=== PATIENT | female | born 1990 | race Caucasian/White ===

== ENCOUNTER → 2017-08-09 14:53 | Outpatient (CLI) | payer MEDICAID, SELFPAY ==
[2017-08-13 14:16] LABS: HPV Reflexed? NOT INDICATED
== END ==
PROVIDERS: Family Provider Internal Medicine; PCP Internal Medicine; Visit Provider Obstetrics & Gynecology
DX: Z12.4 Encounter for screening for malignant neoplasm of cervix (principal)
CPT/HCPCS: 88175; G0145

== ENCOUNTER 2017-08-28 22:15 | Emergency (ER) | payer MEDICAID, SELFPAY ==
[2017-08-28 22:17] VITALS: BP 128/49; PULSE 116; RESP 22; TEMP 36.2; O2SAT 95; BMI 23.6
--- NOTE | 2017-08-28 22:36 | CT_ITS ---
STUDY: CT ABDOMEN AND PELVIS WITHOUT CONTRAST REASON FOR EXAM: Female, 26 years old. Back pain RADIATION DOSAGE (If Supplied By Facility): CTDIvol = ( 6.05 ) mGy, DLP = ( 275.00 ) mGycm TECHNIQUE: Transaxial images were obtained from the dome of the diaphragm to the symphysis pubis without oral contrast, and without intravenous contrast. Sagittal and coronal images were reconstructed. Individualized dose optimization techniques were used for this CT. COMPARISON: None. FINDINGS: The visualized lung bases are unremarkable. The visualized portions of the heart are within normal limits. Normal liver. Normal gallbladder and extrahepatic biliary system. Normal spleen. Normal pancreas. Normal bilateral adrenal glands. Normal right kidney. Normal left kidney. There are NO kidney stones. There is NO hydronephrosis. Normal visualized stomach. Normal small intestine. Normal colon. The appendix is visualized and appears normal. Normal abdominal aorta. Normal inferior vena cava. Normal retroperitoneum. Normal urinary bladder. Uterus and ovaries are unremarkable. There is NO ascites, free air, abscess or adenopathy. Normal abdominal wall. Normal osseous structures. CT/Abdomen/Pelvis without Cont IMPRESSION: There are NO kidney stones. There is NO hydronephrosis. Normal visualized stomach. Normal small intestine. Normal colon. The appendix is visualized and appears normal. Uterus and ovaries are unremarkable. There is NO ascites, free air, abscess or adenopathy. Electronically Signed: Quinn Bowens MD at 0:54 EDT , Service support ,
[2017-08-28] MEDS: proMETHazine 25 MG/ML Syringe 12.5 MG IV (22:43)
[2017-08-28] MEDS: 0.9% Normal Saline 1,000 ML 1000 ML IV (22:43)
[2017-08-28] MEDS: LORazepam 2 MG/ML Syringe 1 MG IV (22:44)
[2017-08-28] MEDS: Ketorolac 30 MG/ML Syringe IV (22:44)
[2017-08-28 22:53] LABS: Absolute Lymphocyte Count 0.43 X10^3/ul (0.83-4.51); Absolute Neutrophil Count 11.4 X10^3/uL (2.0-7.7); Basophil# 0.01 X10^3/uL; Basophil% 0.1 % (0-1); Differential Indicated SCAN CRITERIA MET; Eosinophil# 0.07 X10^3/uL; Eosinophils% 0.5 % (0-5); Hematocrit 45.9 % (37-47); Hemoglobin 15.4 g/dl (12.0-15.0); Lymphocyte # 0.43 X10^3/ul (4.0); Lymphocyte % 3.4 % (19-41); Mean Corp Hgb Conc 33.6 g/gl (32-36); Mean Corpuscular Hgb 30.9 pg (27.0-32.0); Mean Corpuscular Volume 92.2 fL (81-99); Mean Platelet Vol. 10.4 fl (6.2-12.0); Monocyte# 0.87 X10^3/uL; Monocyte% 6.8 % (0-10); Neutrophil # 11.35 X10^3/uL (2.7-7.7); POSITIVE COUNT NO; POSITIVE DIFFERENTIAL YES; POSITIVE MORPHOLOGY NO; Platelet Count 196 K/mm3 (150-450); RBC Distribution Width CV 12.4 % (11.6-14.6); RBC Distribution Width SD 41.4 fl (35.1-43.9); Red Blood Count 4.98 M/mm3 (4.2-5.4); White Blood Count 12.8 K/mm3 (4.4-11.0)
[2017-08-28 23:02] LABS: Anion Gap 10 (5-15); BUN 15 mg/dL (7-18); BUN/Creat Ratio 24.2 RATIO (10-20); Calcium,Total 9.8 mg/dL (8.5-10.1); Chloride 106 mmol/L (98-107); Creatinine, Serum 0.62 mg/dL (0.55-1.02); EST Glomerular Filtration Rate 123 mL/min (>60); Est Glom Filt Rate - Afr Amer 149 mL/min (>60); Estimated Creatinine Clearance 103.76 ml/min; Glucose 133 mg/dL (74-106); Potassium 3.5 mmol/L (3.5-5.1); Sodium Level 142 mmol/L (136-145)
[2017-08-28 23:41] LABS: Bacteria 0 SEEN /hpf (None Seen); Red Blood Cells-Urine 0 SEEN /hpf (0-5)
[2017-08-28 23:44] LABS: Color, Urine Yellow (Yellow); Glucose, Dipstick Normal (Normal); Ketone-Dipstick 15 mg/dl (Negative); Leukocyte Esterase-Dipstick 100 /ul (Negative); Nitrite-Dipstick Negative (Negative); Occult Blood-Urine Negative /ul (Negative); Protein-Dipstick Negative (Negative); Specific Gravity, Urine 1.025 (1.002-1.030); Urine Clarity Clear (Clear); Urine Urobilinogen Normal (Normal)
[2017-08-28 23:45] LABS: Internal QC Validated? YES +Cl - CLEAR BKGD; Pregnancy, Urine Negative Negative
[2017-08-28 23:46] LABS: Urine Bilirubin Dipstick 3 mg/dL (Negative)
[2017-08-28 23:54] LABS: Mucous, Urine 2+ /hpf (<or=2+); Squamous Epithelial Cells - UA 5-10 SEEN /hpf (5-10); White Blood Cells 0-5 SEEN /hpf (0-5)
[2017-08-28 23:55] LABS: Calcium Oxalate Crystals Ur 3+ /hpf (<or=2+)
--- NOTE | 2017-08-29 | ED.DCSUM_ITS ---
- ER Visit Summary Date of Service: 08/28/17 Chief Complaint: Vomiting and lip and hand tingling History of Present Illness: The patient is a 26 F who states that around 8:00 this evening she had a sudden onset of back pain as well as nausea vomiting. She notes a slight amount of diarrhea. She states now she feels short of breath and she has tingling in her lips and hands. She has a history of anxiety depression. No known history of kidney stones. She denies any urinary symptoms. No fevers. No rashes. Physical Examination: Afebrile vital signs show slight tachycardia 116. Gen: Well-nourished well-developed she appears very uncomfortable constantly moving and fidgeting in the bed. Head: Normocephalic atraumatic Eyes: Perrl EOMI ENT: TMs clear no rhinorrhea moist mucous membranes Neck: Supple no lymphadenopathy no JVD nontender CVS: Regular rate rhythm no murmurs normal S1-S2 Respiratory: No distress clear to auscultation bilaterally chest nontender Abdomen: Soft nontender nondistended normal bowel sounds no masses Back: Patient complains of tenderness palpation diffusely across the low back Extremity: Nontender no edema Skin: Normal color no rash Neuro: alert orientated ?3 CN II-XII intact normal strength sensation reflexes gait cerebellar Psych: Normal affect normal mood Test Results: White count 12.8. Glucose 133. Urinalysis demonstrated 3+ calcium oxalate crystals without any evidence of overt infection. test was negative. Emergency Department Course and Treatment: Patient received IV fluids, Toradol, Phenergan, and Ativan. Impression: [] This note was generated with [employer] dictation software. It may contain incorrect words, spelling, and punctuation that were not noted in review of the chart prior to signing ED Disposition - Plan for ED Patient: Chief Complaint: Nausea/Vomiting Referrals: Kwame Self MD [Primary Care Provider] -
[2017-08-29 00:18] VITALS: BP 94/46; PULSE 101; RESP 18; O2SAT 100
[2017-08-29 01:04] VITALS: BP 99/67; PULSE 98; RESP 18; O2SAT 98
[2017-08-29] MEDS: proMETHazine 25 MG Tablet PO (01:11)
== END 2017-08-29 01:11 | disposition home or self-care (01) ==
PROVIDERS: Emergency Provider Emergency Medicine; Family Provider Family Medicine; PCP Family Medicine
DX: K52.9 Noninfective gastroenteritis and colitis, unspecified (principal); R20.2 Paresthesia of skin; R06.00 Dyspnea, unspecified; F41.9 Anxiety disorder, unspecified; F32.9 Major depressive disorder, single episode, unspecified; Z79.899 Other long term (current) drug therapy
CPT/HCPCS: 74176; 80048; 81001; 81025; 85025; 96361; 96374; 96375; 99283; J7030; A4216

== ENCOUNTER → 2018-03-18 09:03 | Outpatient (CLI) | payer MEDICAID, SELFPAY ==
[2018-03-18 09:19] LABS: Absolute Lymphocyte Count 1.89 X10^3/ul (0.83-4.51); Absolute Neutrophil Count 3.2 X10^3/uL (2.0-7.7); Basophil# 0.01 X10^3/uL; Basophil% 0.2 % (0-1); Eosinophil# 0.08 X10^3/uL; Eosinophils% 1.5 % (0-5); Hematocrit 41.8 % (37-47); Hemoglobin 13.7 g/dl (12.0-15.0); Lymphocyte # 1.89 X10^3/ul (4.0); Lymphocyte % 34.4 % (19-41); Mean Corp Hgb Conc 32.8 g/gl (32-36); Mean Corpuscular Hgb 30.4 pg (27.0-32.0); Mean Corpuscular Volume 92.7 fL (81-99); Mean Platelet Vol. 10.3 fl (6.2-12.0); Monocyte# 0.34 X10^3/uL; Monocyte% 6.2 % (0-10); Neutrophil # 3.17 X10^3/uL (2.7-7.7); Neutrophil % 57.7 % (47-70); POSITIVE COUNT NO; POSITIVE DIFFERENTIAL NO; POSITIVE MORPHOLOGY NO; Platelet Count 225 K/mm3 (150-450); RBC Distribution Width CV 12.4 % (11.6-14.6); RBC Distribution Width SD 42.1 fl (35.1-43.9); Red Blood Count 4.51 M/mm3 (4.2-5.4); White Blood Count 5.5 K/mm3 (4.4-11.0)
== END ==
PROVIDERS: Family Provider Family Medicine; PCP Family Medicine; Visit Provider Obstetrics & Gynecology
DX: N93.9 Abnormal uterine and vaginal bleeding, unspecified (principal)
CPT/HCPCS: 36415; 84443; 85025

== ENCOUNTER 2019-03-26 15:46 | Emergency (ER) | payer BC, SELFPAY ==
[2018-10-17 09:27] VITALS: BMI 24.5
[2019-03-26 15:47] VITALS: BP 121/87; PULSE 100; PULSE 89; RESP 19; TEMP 37.1; O2SAT 100; BMI 24.5
--- NOTE | 2019-03-26 16:26 | ED.VISSUMM ---
- ER Visit Summary Date of Service: 03/26/19 Chief Complaint: Cough History of Present Illness: The patient is a 28 F no significant past medical history. Patient states she has had respiratory symptoms and a cough for 2 weeks with worsening cough for last 2 days. Nonproductive. No hemoptysis. No fever chills no wheezing. Mild dyspnea. No leg pain or swelling. Physical Examination: Vital signs are stable afebrile pulses are present on room air no signs of hypoxia. No distress. HEENT exam unremarkable. Neck nontender no lymphadenopathy. Lungs dry cough no rales rhonchi or wheezing. Slightly diminished in the right base. Heart regular rate and rhythm no murmur. Chest were nontender. Abdomen soft nontender. Patient moving all 4 extremities. Calves nontender no edema no cords. Back exam unremarkable. Neurologically awake alert no focal deficits. Test Results: Chest x-ray AP lateral views asymmetry in the right lower lobe compared to the left. I do think there is early infiltrate in the right lower lobe. Reviewed better on the AP film and the lateral. I also thought her diminished breath sounds in the right lower lobe so this will be treated as pneumonia. Nursing did an EKG due to burning chest discomfort when the patient coughs shows a sinus rhythm at a rate of 87 with no acute signs of AL or ischemia. Emergency Department Course and Treatment: Patient's history and exam are consistent with bronchitis or early pneumonia. Due to the chest x-ray she will be started on Zithromax Z-DURAN first dose given in the ER. Treatment Plan: Z-Duran. Plenty fluids and rest. Return if feeling worse. Follow-up if not improving. Tylenol Motrin for fever and chills. Disposition: Discharge Impression: Acute right lower lobe pneumonia This note was generated with [employer] dictation software. It may contain incorrect words, spelling, and punctuation that were not noted in review of the chart prior to signing ED Disposition - Plan for ED Patient: Referrals: Kwame Self MD [STAFF PHYSICIAN] -
--- NOTE | 2019-03-26 16:30 | RAD_ITS ---
STUDY: X-RAY CHEST REASON FOR EXAM: Female, 28 years old. Cough and chest pain. TECHNIQUE: Frontal and lateral views of the chest. COMPARISON: None. FINDINGS: Mild hyperexpansion. There is no demonstrated pleural abnormality. Normal size heart. Normal mediastinum and evelyn. Normal visualized pulmonary arteries. Normal visualized aortic arch and descending thoracic aorta. Normal visualized thoracic spine. Normal visualized ribs, clavicles, and shoulders. There is no demonstrated abnormality of the visualized soft tissue structures of the upper abdomen. RAD/Chest PA and Lateral IMPRESSION: Mild hyperexpansion with no acute finding. Electronically Signed: Jm Reed MD at 16:59 EDT , Service support ,
--- NOTE | 2019-03-26 16:51 | ED.DEP ---
ED Disposition - Plan for ED Patient: Disposition: Home or Assisted Living Instructions: PNEUMONIA (Adult) Prescriptions: Azithromycin [Zithromax] 250 mg PO DAILY #4 tab Prescription Printed Referrals: Kwame Self MD [STAFF PHYSICIAN] - 1 Week if not improving Additional Instructions: Plenty of fluids and rest. Alternate Tylenol Motrin for fever and body aches. Zithromax Z-DURAN 1 pill/day for the next 4 days starting tomorrow. Follow-up with not improving return if feeling a lot worse.
[2019-03-26] MEDS: Azithromycin 250 MG Tablet 500 MG PO (17:03)
[2019-03-26 17:04] VITALS: RESP 18
== END 2019-03-26 17:05 | disposition home or self-care (01) ==
PROVIDERS: Emergency Provider Emergency Medicine; Family Provider Family Medicine; PCP Family Medicine
DX: J18.9 Pneumonia, unspecified organism (principal)
CPT/HCPCS: 71046; 93005; 99283

== ENCOUNTER → 2019-12-07 16:31 | Outpatient (CLI) | payer BC, SELFPAY ==
[2019-12-07 15:23] VITALS: BMI 24.5
[2019-12-13 13:28] LABS: HPV Reflexed? NOT INDICATED
== END ==
PROVIDERS: Referring Provider Obstetrics & Gynecology; Visit Provider Obstetrics & Gynecology
DX: Z12.4 Encounter for screening for malignant neoplasm of cervix (principal)
CPT/HCPCS: 88175; G0145

== ENCOUNTER → 2020-07-31 12:54 | Outpatient (CLI) | payer BC, SELFPAY ==
[2020-07-31 10:37] VITALS: BMI 28.0
== END ==
PROVIDERS: Referring Provider Nurse Practitioner Women's Health; Visit Provider Nurse Practitioner Women's Health
DX: N72 Inflammatory disease of cervix uteri (principal)
CPT/HCPCS: 87070; 87205

== ENCOUNTER → 2023-03-12 | Outpatient (CLI) | payer BC, SELFPAY ==
[2023-03-12 12:59] LABS: Bacteria 0 SEEN /hpf (None Seen); Mucous, Urine 0 SEEN /hpf (<or=2+); Red Blood Cells-Urine 0 SEEN /hpf (0-5); White Blood Cells 0 SEEN /hpf (0-5)
[2023-03-12 13:12] LABS: Color, Urine Straw (Yellow); Glucose, Dipstick Normal (Normal); Ketone-Dipstick Negative (Negative); Leukocyte Esterase-Dipstick Negative /ul (Negative); Nitrite-Dipstick Negative (Negative); Occult Blood-Urine Negative /ul (Negative); Protein-Dipstick Negative (Negative); Specific Gravity, Urine 1.005 (1.002-1.030); Urine Bilirubin Dipstick Negative (Negative); Urine Clarity Clear (Clear); Urine Urobilinogen Normal (Normal); Urine pH 6.5 (5.0 - 8.0)
[2023-03-12 13:20] LABS: Squamous Epithelial Cells - UA 0-5 SEEN /hpf (5-10)
== END | disposition home or self-care (01) ==
LOC: LABSPEC 12:17
PROVIDERS: Visit Provider Physician Assistant Surgical
DX: R35.0 Frequency of micturition (principal)
CPT/HCPCS: 81001; 87086; 87088

== ENCOUNTER → 2023-08-03 | Outpatient (CLI) | payer BC, SELFPAY ==
[2023-08-05 04:07] LABS: Chlamydia By Nucleic Acid AMP Negative (Negative); Gonococcus By Nucleic Acid AMP Negative (Negative)
[2023-08-21 08:35] LABS: HPV Reflexed? NOT INDICATED
== END | disposition home or self-care (01) ==
LOC: LABSPEC 11:13
PROVIDERS: Referring Provider Advanced Practice Midwife; Visit Provider Advanced Practice Midwife
DX: N89.8 Other specified noninflammatory disorders of vagina (principal)
CPT/HCPCS: 87070; 87086; 87205; 87491; 87591; 88175; G0145

== ENCOUNTER → 2024-05-23 | Outpatient (CLI) | payer BC, SELFPAY ==
[2024-05-25 16:08] LABS: Chlamydia By Nucleic Acid AMP Negative (Negative); Gonococcus By Nucleic Acid AMP Negative (Negative)
== END | disposition home or self-care (01) ==
LOC: LABSPEC 12:12
PROVIDERS: Referring Provider Obstetrics & Gynecology; Visit Provider Obstetrics & Gynecology
DX: N94.6 Dysmenorrhea, unspecified (principal); N93.0 Postcoital and contact bleeding; R10.9 Unspecified abdominal pain
CPT/HCPCS: 87070; 87205; 87491; 87591

== ENCOUNTER → 2024-05-30 | Outpatient (CLI) | payer BC, SELFPAY ==
--- NOTE | 2024-05-30 12:41 | US_ITS ---
STUDY: ULTRASOUND OF THE FEMALE PELVIS - COMPLETE REASON FOR EXAM: Female, 33 years old. Abdominal and pelvic pain. LMP: April 06, 2024. TECHNIQUE: Transabdominal and Transvaginal TECHNICAL QUALITY: Adequate. COMPARISON: Comparison is made with prior CT scan done August 28, 2017. FINDINGS: The uterus is retroverted and is in a midline position. The uterus measures 8.4 cm x 6.2 cm x 5.1 cm. Normal uterine cervix. The endometrium measures 12 mm in thickness, and is hyperechoic. There is no demonstrated endometrial mass. There is a 1.4 cm x 1.4 cm x 1 cm fibroid in the right side of the uterine fundus. I.U.D. - The patient does not have an I.U.D. The right ovary is visualized. The right ovary measures 5.5 cm x 3.7 cm x 3.5 cm. There is a 3.3 cm x 2 cm x 1.9 cm simple cyst in the right ovary. There is no visualized right adnexal mass or complex lesion. There is normal arterial and normal venous vascularity. The left ovary is visualized. The left ovary measures 2.2 cm x 2.2 cm x 1.7 cm. There is no left ovarian cyst or ovarian mass. There is no visualized left adnexal mass or complex lesion. There is normal arterial and normal venous vascularity. There is no fluid in the cul-de-sac. The pre void volume of the bladder was 757 ml. US/Pelvic w/ Transvaginal IMPRESSION: Small uterine fibroid. Right ovarian simple cyst. Electronically Signed: Rajesh Lizarraga MD at 12:24 EST ,
== END | disposition home or self-care (01) ==
LOC: US 12:40
PROVIDERS: PCP Internal Medicine; Referring Provider Obstetrics & Gynecology; Visit Provider Obstetrics & Gynecology
DX: N94.6 Dysmenorrhea, unspecified (principal); N93.0 Postcoital and contact bleeding; R10.9 Unspecified abdominal pain
CPT/HCPCS: 76830; 76856

== ENCOUNTER 2024-08-31 09:34 | Day surgery (SDC) | payer BC, SELFPAY ==
--- NOTE | 2024-08-29 09:27 | PAT.ANE_ITS ---
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 When Was Last Pacemaker Check QUESTION #4 FULL TEXT: You/Your Family Experience fever (hyperthermia) with Anesthesia Last Oral Intake Last Oral intake: Last Oral Intake NPO since Meds taken in AM with sips of water? 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 Female Yes 08/28/24 15:22 HX of Motion Sickness Yes 08/28/24 15:22 HX of N/V After Surgery No 08/28/24 15:22 Non-Smoker Yes 08/28/24 15:22 Duration of Surgery greater No 08/28/24 15:22 than 60 minutes Number of Risk Factors 3 08/28/24 15:22 PONV Score Moderate Risk 08/28/24 15:22 Height & Weight Height & Weight: Anesthesia: Height & Weight Height 5 ft 4 in 08/07/24 09:14 Respiratory Assessment Respiratory Assessment - computer engineering professor: Respiratory Tract Infection Hx - computer engineering professor Hx Respiratory Tract Infection No 08/28/24 15:22 STOP Sleep Apnea STOP Sleep Apnea - computer engineering professor: STOP Sleep Apnea - computer engineering professor Hx Hypertension No 08/28/24 15:22 Hx Sleep Apnea No 08/28/24 15:22 CPAP BIPAP Do you snore loudly (louder No 08/28/24 15:22 than talking or can be heard Do you often feel tired/ No 08/28/24 15:22 fatigued/ sleepy during daytime? Has anyone observed you stop No 08/28/24 15:22 breathing during sleep? STOP Results Negative 08/28/24 15:22 QUESTION #5 FULL TEXT : Do you snore loudly (louder than talking or can be heard through closed doors)? 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 Specify any problems Hx of Preganancy in last 3 N/A 08/28/24 15:22 Months Nurse Filling Out Transfusion NBUCHER 08/28/24 15:22 & Questions: Date: 08/28/24 08/28/24 15:22 Time: 15:24 08/28/24 15:22 Patient unable to answer at this time (ie. confused, unrespo /Reproduction History /Reproductive History - computer engineering professor: /Reproductive Hx- computer engineering professor Hx Now No 08/28/24 15:22 Gestational Age (in weeks): EDC: Hx Hx Para Hx Section SAB No 08/28/24 15:22 COUNT INCLUDES THE [facility] Medical History (Updated 08/28/24 @ 15:28 by Orin Gordon) Wears glasses Depression Anxiety Migraine headache Former smoker Asthma SOB (shortness of breath) Dermatitis, seborrheic Post depression Home Medications ?Medication ?Instructions ?Recorded ?Last Taken ?Type doxycycline hyclate 20 mg tablet 20 mg PO DAILY Unknown History calcium 300 mg-D3 25 mcg-magnesium 1 tab PO DAILY 06/01 12/22 Unknown History 66 mg-K2 37.5 mcg-herbal tablet (Alive Calcium-Vitamin D3-K2) magnesium 250 mg tablet 250 mg PO QDAY 06/26/24 Unkn own History omega-3 fatty acids-fish oil 300 1 cap PO DAILY Unknown History mg-500 mg capsule (Fish Oil) dextroamphetamine-amphetamine 10 10 mg PO DAILY Unknown History mg tablet (Adderall) Allergy/AdvReac Type Severity Reaction Status Date / Time ondansetron HCl (From Zofran Allergy Headache Verified 08/28/24 15:20 (as hydrochloride)) Family History Father Hypertension Hyperlipemia Environmental asthma Mother Hypertension Grandmother Diabetes Heart disease Surgical History (Updated 08/28/24 @ 15:28 by Orin Gordon) History of wisdom tooth extraction History of hand surgery History of open reduction and internal fixation (ORIF) procedure (~2010) Humerus fracture (~2009) Social History household members: family housing: house number of children: 2 current occupational status: employed 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 Normal sinus rhythm with sinus arrhythmia. Nonspecific T wave abnormality. Recommendation Anesthesia Recommendation Anesthesia recommendation: OPTIMIZED for anesthesia
[2024-08-31 09:57] LABS: Internal QC Validated? YES +Cl - CLEAR BKGD; Pregnancy, Urine Negative Negative
[2024-08-31 10:03] VITALS: BP 118/84; PULSE 63; RESP 16; TEMP 36.7; O2SAT 100; BMI 21.5
--- NOTE | 2024-08-31 10:31 | PCM.PRE.AN2 ---
ASA Classification* ASA Classification ASA Classification: 2 Assessment & Plan Anesthesia* Anesthesia Assessment Anesthesia Assessment: Discussed sedation and/or anesthesia options, risks, benefits, and alternatives with patient/parents/legal guardian/POA. Questions invited. The patient/parents/legal guardian/POA seems to understand and agrees to proceed with anesthesia plan. Reviewed the physical assessment, medical history, allergy history and patient home medications list prior to surgery/procedure/anesthetic and documented any changes. Performed airway and anesthesia risk assessments. Anesthesia Type Anesthesia Type: MAC History Source History Obtained from:: Patient and Chart Anesthesia Focused Assessment* Temperature: 98.0 F Pulse Rate: 63 Blood Pressure: 118/84 Respiratory Rate: 16 Pulse Ox: 100 Oxygen Delivery Method: Room Air Airway Assessment Mouth opens: >3 cm Mallampati Score: II Teeth Condition: Intact Neck Range of motion (ROM): Full ROM Focused Labs Anesthesia Preop lab: CBC WBC 5.5 K/mm3 (4.4-11.0) 03/18/18 09:06 03/18/18 RBC 4.51 M/mm3 (4.2-5.4) 03/18/18 09:06 03/18/18 Hgb 13.7 g/dl (12.0-15.0) 03/18/18 09:06 03/18/18 Hct 41.8 % (37-47) 03/18/18 09:06 03/18/18 Plt Count 225 K/mm3 (150-450) 03/18/18 09:06 03/18/18 CHEMISTRY Potassium 3.5 mmol/L (3.5-5.1) 08/28/17 22:43 08/28/17 Sodium 142 mmol/L (136-145) 08/28/17 22:43 08/28/17 BUN 15 mg/dL (7-18) 08/28/17 22:43 08/28/17 Creatinine 0.62 mg/dL (0.55-1.02) 08/28/17 22:43 08/28/17 Glucose 133 mg/dL (74-106) H 08/28/17 22:43 08/28/17 TSH 1.90 uIU/mL (0.358-3.74) 03/18/18 09:06 03/18/18 COAG Urine Test Negative Negative 08/31/24 09:45 08/31/24 Pre-Assessment Diagnosis/Proposed Procedure Planned Operative Procedure(s): COLONOSCOPY Anesthesia History 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 When Was Last Pacemaker Check QUESTION #4 FULL TEXT: You/Your Family Experience fever (hyperthermia) with Anesthesia Last Oral Intake Last Oral intake: Last Oral Intake NPO since 06:30 08/31/24 10:03 Meds taken in AM with sips of No 08/31/24 10:03 water? 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 Female Yes 08/28/24 15:22 HX of Motion Sickness Yes 08/28/24 15:22 HX of N/V After Surgery No 08/28/24 15:22 Non-Smoker Yes 08/28/24 15:22 Duration of Surgery greater No 08/28/24 15:22 than 60 minutes Number of Risk Factors 3 08/28/24 15:22 PONV Score Moderate Risk 08/28/24 15:22 Height & Weight Height & Weight: Anesthesia: Height & Weight Height 5 ft 4 in 08/31/24 10:03 Weight: 57 kg 08/31/24 10:03 Body Mass Index (BMI) 21.5 08/31/24 10:03 Respiratory Assessment Respiratory Assessment - jump iron machine presser: Respiratory Tract Infection Hx - jump iron machine presser Hx Respiratory Tract Infection No 08/28/24 15:22 STOP Sleep Apnea STOP Sleep Apnea - jump iron machine presser: STOP Sleep Apnea - jump iron machine presser Hx Hypertension No 08/28/24 15:22 Hx Sleep Apnea No 08/28/24 15:22 CPAP BIPAP Do you snore loudly (louder No 08/28/24 15:22 than talking or can be heard Do you often feel tired/ No 08/28/24 15:22 fatigued/ sleepy during daytime? Has anyone observed you stop No 08/28/24 15:22 breathing during sleep? STOP Results Negative 08/28/24 15:22 QUESTION #5 FULL TEXT : Do you snore loudly (louder than talking or can be heard through closed doors)? 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 Specify any problems Hx of Preganancy in last 3 N/A 08/28/24 15:22 Months Nurse Filling Out Transfusion NBUCHER 08/28/24 15:22 & Questions: Date: 08/28/24 08/28/24 15:22 Time: 15:24 08/28/24 15:22 Patient unable to answer at this time (ie. confused, unrespo /Reproduction History /Reproductive History - jump iron machine presser: /Reproductive Hx- jump iron machine presser Hx Now No 08/28/24 15:22 Gestational Age (in weeks): EDC: Hx Hx Para Hx Section SAB No 08/28/24 15:22 PFSH Medical History Wears glasses Depression Anxiety Migraine headache Former smoker Asthma SOB (shortness of breath) Dermatitis, seborrheic Post depression Home Medications ?Medication ?Instructions ?Recorded ?Last Taken ?Type doxycycline hyclate 20 mg tablet 20 mg PO DAILY 03/11/23 Unknown History calcium 300 mg-D3 25 mcg-magnesium 1 tab PO DAILY 06/26/24 Unknown History 66 mg-K2 37.5 mcg-herbal tablet (Alive Calcium-Vitamin D3-K2) magnesium 250 mg tablet 250 mg PO QDAY 06/26/24 Unknown History omega-3 fatty acids-fish oil 300 1 cap PO DAILY 06/26/24 Unknown History mg-500 mg capsule (Fish Oil) dextroamphetamine-amphetamine 10 10 mg PO DAILY 08/28/24 Unknown History mg tablet (Adderall) Allergy/AdvReac Type Severity Reaction Status Date / Time ondansetron HCl (From Zofran Allergy Headache Verified 08/31/24 10:02 (as hydrochloride)) Family History Father Hypertension Hyperlipemia Environmental asthma Mother Hypertension Grandmother Diabetes Heart disease Surgical History History of wisdom tooth extraction History of hand surgery History of open reduction and internal fixation (ORIF) procedure (~2010) Humerus fracture (~2009) Social History household members: family housing: house number of children: 2 current occupational status: employed 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
[2024-08-31 10:40] VITALS: BP 118/84; PULSE 63; RESP 16; TEMP 36.7; O2SAT 100
--- NOTE | 2024-08-31 10:45 | COLBX_PTH ---
PATIENT: JAIRON JOLLEY LOC: EN U#:[id number] AGE/SX: 33/F ROOM: RE08/31/[address]: Dr. Yaya Collazo DO : 1990 BED: DIS: 08/31/2024 SPEC #: [id number] RECD: 08/31/24 12:33 STATUS: ASHLEE REVera #: [id number] BAKARI: 08/31/24 10:[address]: Yaya Collazo DEPT: SURGICAL PATHOLOGY RECD BY: Eladio Baker ENTERED: 08/31/24 14:07 SP TYPE: COLON BX [place] DR: Dr. Cristy Betancourt DO Tissues: A - Ileum, NOS B - COLON BIOPSY C - Rectum, NOS Procedures: Surgery Specimen Level IV HEADER OPERATION: Colonoscopy with biopsy PRE-OP DIAGNOSIS: Constipation, bloating, diarrhea TISSUE SUBMITTED: A- Terminal ileum biopsy, B- Random colon biopsy, C- Rectum polyp biopsy MICROSCOPIC DIAGNOSIS A. Small Bowel, Terminal Ileum, Biopsy: - Normal villous morphology with prominent mucosal lymphoid aggregates, favor reactive process - see note. Note: If there is clinical concern for a lymphoproliferative disorder, please contact the laboratory to request further evaluation. B. Colon, Random, Biopsy: - No specific pathologic change. C. Rectum, Polyp, Biopsy: - Hyperplastic polyp. MICROSCOPIC DESCRIPTION Slides are reviewed. GROSS DESCRIPTION A. Received in formalin in a container labeled with the patient's name, date of , and biopsy: Terminal ileum are 2 castro-pink fragments of mucosal tissue, each measuring 0.4 x 0.3 x 0.3 cm. Submitted in toto in A1. B. Received in formalin in a container labeled with the patient's name, date of , and biopsy: Random colon is a 0.6 x 0.3 x 0.2 cm fragment of castro-pink mucosal tissue. Submitted in toto in B1. C. Received in formalin in a container labeled with the patient's name, date of , and polyp at rectal biopsy is a 0.2 x 0.2 x 0.2 cm fragment of castro-pink mucosal tissue. Submitted in toto in C1. [facility] 08-31-2024 CPT:[id number]
--- NOTE | 2024-08-31 11:02 | PCM.HP.STD ---
HPI - General General Date of Admission: 08/31/24 Date of Service: 08/31/24 HPI Narrative JAIRON JOLLEY, is a 33 F who presents with Episodes of diarrhea and constipation. - long history of constipation and diarrhea - c/o bloating with eating - no improvement with dairy elimination - BRBPR 9 years ago with - Family h/o colon CA - maternal GF - Uncle with Crohn's disease - 5-7d prior to menstrual cycle she has constipation - 1st day of cycle she has diarrhea - reports having somewhat normal/loose stools - if she skips a day taking Magnesium Glycinate at HS she will not have a BM - CONSTIPATION = straining and hard stools, bloated - typically has a BM daily - symptoms date back to child ocllier - reports her water intake is good - has tried whole foods diet without improvement - states she is a very picky eater B: tea, bagel with butter and cinnamon sugar L: eggs with cottage cheese, spinach ---- but most often skips lunch S: yogurt drink D: protein, vegetable/fruit, starch - tried a powder supplement in the past - several years ago - tried Miralax in the past PROBIOTIC - changes the brand often [employer] - often CERVANTES - primarily 1 week before menstrual cycle - Tylenol QOD, occasional Motrin 1-2x a month - she is a non-smoker - EtOH - very rare - Caffeine - black tea - denies any weight loss - reports a TSH was recently normal - per patient Pelvic US revealed a uterine fibroid and a cyst - denies any N/V - denies any HB [facility] Medical History Wears glasses Depression Anxiety Migraine headache Former smoker Asthma SOB (shortness of breath) Dermatitis, seborrheic Post depression Home Medications ?Medication ?Instructions ?Recorded ?Last Taken ?Type doxycycline hyclate 20 mg tablet 20 mg PO DAILY 03/11/23 Unknown History calcium 300 mg-D3 25 mcg-magnesium 1 tab PO DAILY 06/26/24 Unknown History 66 mg-K2 37.5 mcg-herbal tablet (Alive Calcium-Vitamin D3-K2) magnesium 250 mg tablet 250 mg PO QDAY 06/26/24 Unknown History omega-3 fatty acids-fish oil 300 1 cap PO DAILY 06/26/24 Unknown History mg-500 mg capsule (Fish Oil) dextroamphetamine-amphetamine 10 10 mg PO DAILY 08/28/24 Unknown History mg tablet (Adderall) Allergy/AdvReac Type Severity Reaction Status Date / Time ondansetron HCl (From Zofran Allergy Headache Verified 08/31/24 10:02 (as hydrochloride)) Family History Father Hypertension Hyperlipemia Environmental asthma Mother Hypertension Grandmother Diabetes Heart disease Surgical History History of wisdom tooth extraction History of hand surgery History of open reduction and internal fixation (ORIF) procedure (~2010) Humerus fracture (~2009) Social History household members: family housing: house number of children: 2 current occupational status: employed 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 [employer] Smoking Status: Former smoker second hand exposure: No alcohol intake: current alcohol intake frequency: holidays/special occasions only Alcohol type: beer, wine and hard liquor substance use type: does not use caffeine: Yes what type of physical activity do you participate in: none seatbelt use: always do you feel safe at home: Yes additional social history: -Trisha ROS Constitutional Constitutional: Denies fatigue, fever(s), poor appetite, weight gain or weight loss Gastrointestinal Gastrointestinal: Denies belching, bloating, change in bowel habits, change in stool character, chewing difficulty, coffee ground emesis, constipation, cramping, diarrhea, dyspepsia, dysphagia, early satiety, excessive flatus, fecal incontinence, heartburn, hematemesis, hematochezia, hemorrhoids, loose stools, melena, nausea, odynophagia, rectal bleeding, tenesmus, vomiting or weight changes Vital Signs Vital Signs Vital Signs: 08/31/24 10:03 08/31/24 10:03 08/31/24 10:40 Temperature 98.0 F 98.0 F Temperature Source Temporal Pulse Rate 63 63 Respiratory Rate 16 16 Respiratory Pattern Normal Blood Pressure 118/84 H 118/84 H Blood Pressure Mean 95 Blood Pressure Source Monitor Blood Pressure Position Sitting Blood Pressure Location Left Arm Pulse Ox 100 100 Oxygen Delivery Method Room Air Room Air Weight Weight: 125 lb 10.616 oz Body Mass Index (BMI) 21.5 Results Lab / Micro Data Labs: Laboratory Results - last 24 hr 08/31/24 09:45: Urine Test Negative Assessment & Plan Assessment/Plan (1) Constipation: QUALIFIERS: Constipation type: unspecified constipation type Qualified Code(s): K59.00 - Constipation, unspecified (2) Bloating: (3) Diarrhea: PLAN: Assessment and Plan Assessment and Plan (1) Abdominal pain: Status: Acute Qualifiers: Abdominal location: generalized Qualified Code(s): R10.84 - Generalized abdominal pain Comment: constipation chronic (2) Bloating: Status: Acute (3) Constipation: Status: Acute Qualifiers: Constipation type: unspecified constipation type Qualified Code(s): K59.00 - Constipation, unspecified Plan 33y/o female presents for consultation with complaints of alternating constipation/diarrhea and bloating. She experiences hard stools, straining with BM and intermittent diarrhea with chronic bloating. She is on a daily probiotic. We have discussed dietary modifications with increased fiber intake and start FiberCon daily. I have scheduled her for a colonoscopy. She will keep me apprised of any changes in her symptoms. Patient Instructions: High Fiber Diet Continue a daily probiotic Start FiberCon 2 tablets - it may take three weeks before you start to notice symptom improvement Kiwi fruit has been shown to improve bowel habits with the addition of daily fiber supplement Follow-up in the office 2-3 weeks post procedure Plan Details
[2024-08-31 11:45] VITALS: BP 102/68; BP 118/84; PULSE 69; RESP 16; TEMP 36.4; O2SAT 100
--- NOTE | 2024-08-31 11:49 | PCM.POST.ANE ---
Anesthesia: Postop Eval I Current Vital Signs Temperature: 97.5 F Pulse Rate: 70 Blood Pressure: 102/68 Respiratory Rate: 16 Pulse Ox: 100 Oxygen Delivery Method: Room Air Assessment Airway patent: Yes Spontaneous unlabored respirations: Yes Mental status: Awake and Calm nausea: No Vomiting: No Anesthesia Complication: No Fluid Hydration Crystalloid volume administer (ml): 50 Total IV fluid infused: 50 Progress Note Anesthesia document: Postop Eval 1 completed: Yes
[2024-08-31 11:50] VITALS: BP 102/68; BP 111/79; BP 118/84; PULSE 67; PULSE 70; RESP 16; RESP 18; TEMP 36.4; O2SAT 100
--- NOTE | 2024-08-31 11:53 | OP.COLON_ITS ---
Patient Name: Monserrat Merino Procedure Date: 08/31/2024 11:12 AM Date of : 1990 Age: 33 Procedure: Colonoscopy Indications: Epigastric abdominal pain, Change in bowel habits, Change in stool caliber, Rectal pain Providers: Yaya Collazo DO Referring MD: Cristy Betancourt Medicines: Monitored Anesthesia Care Patient Profile: This is a 33 year old female. Refer to note in patient chart for documentation of history and physical. Last Colonoscopy: none. The patient's first colonoscopy is today. Complications: No immediate complications. Procedure: Pre-Anesthesia Assessment: - Prior to the procedure, a History and Physical was performed, and patient medications and allergies were reviewed. The patient is competent. The risks and benefits of the procedure and the sedation options and risks were discussed with the patient. All questions were answered and informed consent was obtained. Patient identification and proposed procedure were verified by the physician in the pre-procedure area. Mental Status Examination: alert and oriented. Airway Examination: normal oropharyngeal airway and neck mobility. Respiratory Examination: clear to auscultation. CV Examination: normal. Prophylactic Antibiotics: The patient does not require prophylactic antibiotics. Prior Anticoagulants: The patient has taken no anticoagulant or antiplatelet agents except for NSAID medication. ASA Grade Assessment: II - A patient with mild systemic disease. After reviewing the risks and benefits, the patient was deemed in satisfactory condition to undergo the procedure. The anesthesia plan was to use monitored anesthesia care (MAC). Immediately prior to administration of medications, the patient was re-assessed for adequacy to receive sedatives. The heart rate, respiratory rate, oxygen saturations, blood pressure, adequacy of pulmonary ventilation, and response to care were monitored throughout the procedure. The physical status of the patient was re-assessed after the procedure. After I obtained informed consent, the scope was passed under direct vision. Throughout the procedure, the patient's blood pressure, pulse, and oxygen saturations were monitored continuously. The colonoscope was introduced through the anus and advanced to the terminal ileum. The colonoscopy was performed without difficulty. The patient tolerated the procedure well. The quality of the bowel preparation was adequate. The terminal ileum, ileocecal valve, appendiceal orifice, and rectum were photographed. Scope In: 11:21:47 AM Scope Withdrawal Time 0 hours 10 minutes 27 seconds Scope Out: 11:37:33 AM Total Procedure Duration Time 0 hours 15 minutes 46 seconds Findings: The perianal and digital rectal examinations were normal. A 5 mm polyp was found in the rectum. The polyp was sessile. The polyp was removed with a jumbo cold forceps. Resection and retrieval were complete. The colon (entire examined portion) appeared normal. Biopsies for histology were taken with a cold forceps from the right colon, left colon, transverse colon, right transverse colon, sigmoid colon and rectum for evaluation of microscopic colitis. The terminal ileum appeared normal. Biopsies were taken with a cold forceps for histology. Verification of patient identification for the specimen was done. Estimated blood loss was minimal. Impression: - One 5 mm polyp in the rectum, removed with a jumbo cold forceps. Resected and retrieved. - The entire examined colon is normal. Biopsied. - The examined portion of the ileum was normal. Biopsied. Recommendation: - Discharge patient to home. - Resume previous diet. - Continue present medications. - Await pathology results. - Repeat colonoscopy for surveillance based on pathology results. Procedure Code(s): --- Professional --- 76025, Colonoscopy, flexible; with biopsy, single or multiple CPT copyright 2021 [employer]. All rights reserved. The codes documented in this report are preliminary and upon video presentation operator review may be revised to meet current compliance requirements. Yaya Collazo DO 08/31/2024 11:52:19 AM This report has been signed electronically. Number of Addenda: 0 Note Initiated On: 08/31/2024 11:12 AM
--- NOTE | 2024-08-31 11:53 | OP.CCLET_ITS ---
08/31/2024 Cristy Betancourt Re : Colonoscopy procedure for Monserrat Merino Dear Serafin This procedure was performed on August. My impressions and recommendations are as follows: Impressions : - One 5 mm polyp in the rectum, removed with a jumbo cold forceps. Resected and retrieved. - The entire examined colon is normal. Biopsied. - The examined portion of the ileum was normal. Biopsied. Recommendations : - Discharge patient to home. - Resume previous diet. - Continue present medications. - Await pathology results. - Repeat colonoscopy for surveillance based on pathology results. My findings are described in the full procedure note, which is enclosed. If I can be of further assistance, please feel free to contact me at . Sincerely, Yaya Collazo, 08/31/2024 11:52:19 AM This report has been signed electronically.
[2024-08-31 11:55] VITALS: BP 103/80; BP 118/84; PULSE 55; RESP 16; TEMP 36.4; O2SAT 100
[2024-08-31 12:12] VITALS: BP 118/84
--- NOTE | 2024-08-31 13:55 | PCM.POSTANE2 ---
Anesthesia Postop Eval I Sum Postop Eval Completion status Anesthesia document: Postop Eval 1 completed: Yes Anesthesia Postop Eval I Summary Anesthesia Postop Eval I Summary: Anesthesia Postop Eval I: Assessment Summary Airway patent Yes 08/31/24 11:50 [email or web address] Spontaneous unlabored Yes 08/31/24 11:50 [email or web address] respirations Mental status Awake,Calm 08/31/24 11:50 [email or web address] nausea No 08/31/24 11:50 [email or web address] Vomiting No 08/31/24 11:50 [email or web address] Anesthesia Postop Eval I: Fluid Summary Crystalloid volume administer 50 08/31/24 11:50 [email or web address] (ml) Colloids volume administered ( ml) Blood Product volume administered (ml) Total IV fluid infused 50 08/31/24 11:50 [email or web address] Anesthesia Postop Eval I: Summary Notes Anesthesia Complication No 08/31/24 11:50 [email or web address] Anesthesia Complication Comment: Post-operative progress note Anesthesia: Postop Eval II Evaluation Mental status: Awake and Calm Pain Level: 0 nausea: No Vomiting: No Complications Anesthesia Complication: No
== END 2024-08-31 12:21 | disposition home or self-care (01) ==
LOC: EN 09:35 → AC 09:36
PROVIDERS: Anesthesiology; PCP Internal Medicine; Referring Provider Internal Medicine; Visit Provider Internal Medicine Gastroenterology
PROC: 0DJD8ZZ Inspection of Lower Intestinal Tract, Via Natural or Artificial Opening Endoscopic (ICD-10-PCS; CPT 45378; principal; 2024-08-31 10:40)
DX: R19.7 Diarrhea, unspecified (principal); R10.84 Generalized abdominal pain; K62.1 Rectal polyp; R14.0 Abdominal distension (gaseous); K59.09 Other constipation; Z87.891 Personal history of nicotine dependence
CPT/HCPCS: 45380; 81025; 88305; A4216

== ENCOUNTER → 2024-09-08 | Outpatient (CLI) | payer BC, SELFPAY ==
--- NOTE | 2024-09-08 17:50 | CT_ITS ---
PROCEDURE: BRAIN/HEAD W/WO CONTRAST 09/08/2024 REASON FOR EXAM: CHRONIC HEADACHES TECHNIQUE: Head CT before and following intravenous contrast. Coronal and Sagittal reconstruction series were provided. CONTRAST: Omnipaque 350 VOLUME: 100 mL One or more dose reduction techniques were used (e.g., Automated exposure control, adjustment of the mA and/or kV according to patient size, use of iterative reconstruction technique). COMPARISON: None FINDINGS: * ACUTE: No acute infarct or hemorrhage. No mass effect or herniation. * BRAIN PARENCHYMA: Mendez-white matter differentiation is within normal limits. No suspicious intracranial mass, abnormal parenchymal or leptomeningeal enhancement. * VENTRICLES/EXTRA-AXIAL SPACES: No hydrocephalus or extra-axial fluid collections. * EXTRACRANIAL STRUCTURES: Visualized osseous structures are normal. Soft tissues are normal. CT/Brain/Head W/WO Contrast IMPRESSION: No acute intracranial abnormality. No suspicious intracranial mass, abnormal parenchymal or leptomeningeal enhance ment. Reading Location: [facility]
== END | disposition home or self-care (01) ==
PROVIDERS: PCP Internal Medicine; Referring Provider Internal Medicine; Visit Provider Internal Medicine
DX: R51.9 Headache, unspecified (principal)
CPT/HCPCS: 70470; Q9967

== ENCOUNTER → 2024-09-23 | Outpatient (CLI) | payer BC, SELFPAY ==
[2024-09-23 09:09] LABS: ALB/GLOB Ratio 1.6 RATIO (0.9-2.4); AST(SGOT) 17 U/L (<=31); Alanine Aminotransfer ALT/SGPT 8 U/L (<=34); Albumin, Serum 4.4 g/dL (3.5-5.0); Alkaline Phosphatase 63 U/L (35-104); Anion Gap 9 (5-15); BUN 14 mg/dL (4-19); BUN/Creat Ratio 19.9 RATIO (10-20); Calcium,Total 9.6 mg/dL (7.6-11.0); Chloride 105 mmol/L (98-108); Creatinine, Serum 0.69 mg/dL (0.70-1.20); EST Glomerular Filtration Rate 118 (>60); Ferritin 64 ng/mL (22-378); Follicle Stimulating Hormone 6.3 mIU/mL; Globulin 2.8 g/dL (2.2-4.2); Glucose 85 mg/dL (70-99); Protein, Total 7.2 g/dL (5.9-8.4); Sodium Level 140 mmol/L (133-145); Total Bilirubin 0.61 mg/dL (0.00-1.30)
[2024-09-26 13:08] LABS: HOMOCYSTEINE 7.9 umol/L (0.0-14.5)
== END | disposition home or self-care (01) ==
LOC: LAB 07:55
PROVIDERS: PCP Internal Medicine; Referring Provider Obstetrics & Gynecology; Visit Provider Obstetrics & Gynecology
DX: F32.81 Premenstrual dysphoric disorder (principal); R53.83 Other fatigue; E28.9 Ovarian dysfunction, unspecified
CPT/HCPCS: 36415; 80053; 82157; 82390; 82525; 82533; 82627; 82670; 82728; 83001; 83090; 84402; 84630; 82626

== ENCOUNTER → 2024-09-27 | Outpatient (CLI) | payer BC, SELFPAY ==
[2024-09-27 11:15] LABS: Glucose 75GTT - Fasting 87 mg/dL (70-99)
[2024-09-27 11:47] LABS: Free T3 3.4 pg/mL (2.18-3.98); T3 Total - Triiodothyronine 1.17 ng/mL (0.80-2.00)
[2024-09-27 14:03] LABS: Glucose 75GTT - 60 minutes 152 mg/dL (100-160)
[2024-09-27 15:13] LABS: Glucose 75GTT - 30 minutes 147 mg/dL (100-160)
[2024-09-27 19:06] LABS: Glucose 75GTT - 120 minutes 98 mg/dL (70-140)
[2024-09-29 07:08] LABS: PROLACTIN 7.7 ng/mL (4.8-33.4)
[2024-09-29 07:08] LABS: PROLACTIN 8.8 ng/mL (4.8-33.4)
[2024-10-05 14:09] LABS: INSULIN FASTING 2.8 uIU/mL (2.6-24.9); PROLACTIN 8.8 ng/mL (4.8-33.4); Thyroglobulin Antibody < 1.0 IU/mL (0.0-0.9); Thyroid Peroxidase AB < 9 IU/mL (0-34)
== END | disposition home or self-care (01) ==
LOC: LAB 09:38
PROVIDERS: PCP Internal Medicine; Referring Provider Obstetrics & Gynecology; Visit Provider Obstetrics & Gynecology
DX: R73.09 Other abnormal glucose (principal); Z15.1 Genetic susceptibility to epilepsy and neurodevelopmental disorders; E07.89 Other specified disorders of thyroid
CPT/HCPCS: 36415; 82951; 82952; 83525; 84146; 84439; 84443; 84480; 84481; 86376; 86800

== ENCOUNTER → 2025-05-15 | Outpatient (CLI) | payer BC, SELFPAY | END | disposition home or self-care (01) | LOC: PSN 11:04 | PROVIDERS: PCP Internal Medicine; Referring Provider Internal Medicine; Visit Provider Internal Medicine | DX: R00.2 Palpitations (principal) | CPT/HCPCS: 93225; 93226 ==